=== PATIENT | female | born 1940 | race Caucasian/White ===

== ENCOUNTER 2016-03-10 07:42 | Outpatient (CLI) | payer OTHER ==
[2016-03-10] MEDS ORDERED: DENOSUMAB 60 MG/ML ML SQ ONE (08:00)
[2016-03-10 08:43] LABS: eGFR (African) > 60; eGFR (Non-African) > 60
== END 2016-03-10 07:44 ==
LOC: INF 07:42
PROVIDERS: ATTEND Family Medicine
DX: M81.0 Age-related osteoporosis without current pathological fracture (principal)
CPT/HCPCS: 36415; 80053; 96372; J0897

== ENCOUNTER 2016-04-30 08:37 | Outpatient (CLI) | payer OTHER ==
--- NOTE | 2016-04-30 13:45 | Diagnostic Imaging Report ---
HERACLIO PEREA~ [facility] [address] [facility].[address] [address] ~ ~ ~ ~ Report Submission Date: Apr 30, 2016 11:52:02 AM CDT Patient ~ Study Name: CE RICHARDS ~ Date: Apr 30, 2016 9:23:49 AM CDT ~ Modality Type: MR Gender: O ~ Description: MRA HEAD W/O CONTRAST : 44 ~ Institution: [facility] Physician: HERACLIO PEREA ~ ~ ~ ~ MRI of the brain and MRA of the brain Clinical history headaches Technique sagittal and axial T1 and T2 weighted sequence through the brain with 3D time of flight MRA performed through through the skull base. Findings: MRI brain images show mild cerebral atrophy. No hemorrhage or midline shift is seen. The midline structures are normally developmental there is a polyp or retention cyst in the left maxillary sinus. No diffusion restriction is seen. The MRA images show of the right vertebral artery appears occluded. The left vertebral artery small. The basilar artery is small. Posterior cerebral arteries are perfused by patent posterior communicating arteries. The distal internal carotid arteries middle cerebral arteries an anterior cerebral arteries all appear widely patent. 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
== END 2016-04-30 08:40 ==
LOC: RAD 08:37
PROVIDERS: ATTEND Family Medicine
DX: R51 Headache (principal)
CPT/HCPCS: 70544

== ENCOUNTER 2016-09-08 07:58 | Outpatient (CLI) | payer OTHER ==
[2016-09-08 09:10] LABS: eGFR (African) > 60; eGFR (Non-African) > 60
== END 2016-09-08 08:00 ==
LOC: LAB 07:58
PROVIDERS: ATTEND Family Medicine
DX: M81.0 Age-related osteoporosis without current pathological fracture (principal)
CPT/HCPCS: 36415; 80053

== ENCOUNTER 2016-09-11 11:45 | Outpatient (CLI) | payer OTHER ==
[~2016-09-11 11:45] MED LIST: DENOSUMAB 60 MG/ML ML SQ SCH
[2016-09-11] MEDS ORDERED: DENOSUMAB 60 MG/ML ML SQ ONE (12:00)
== END 2016-09-11 12:00 ==
LOC: INF 11:45
PROVIDERS: ATTEND Family Medicine
DX: M81.0 Age-related osteoporosis without current pathological fracture (principal)
CPT/HCPCS: 96372; J0897

== ENCOUNTER 2017-12-11 11:12 | Outpatient (CLI) | payer OTHER ==
--- NOTE | 2017-12-11 13:38 | Diagnostic Imaging Report ---
HERACLIO PEREA [facility] [address] [facility].[address] [id number] Report Submission Date: Dec 11, 2017 12:18:22 PM CDT Patient Study Name: CE RICHARDS Date: Dec 11, 2017 11:26:59 AM CDT Modality Type: DX Gender: F Description: PELVIS : 44 Institution: [facility] Physician: HERACLIO PEREA Right hip History: Worsening hip pain AP and frogleg lateral projections of the right hip demonstrate no significant degenerative findings. No osseous abnormalities are noted. Mineralization is normal. Impression: Unremarkable right hip for age. No significant degenerative findings. Electronically signed on Dec 11, 2017 12:18:22 PM CDT by: Prema ERAZO
== END 2017-12-11 13:23 ==
LOC: RAD 11:12
PROVIDERS: ATTEND Family Medicine
DX: M25.551 Pain in right hip (principal)
CPT/HCPCS: 73502